=== PATIENT | female | born 1975 | race Caucasian/White ===

== ENCOUNTER 2020-09-15 18:51 | Emergency (ER) | payer OTHER ==
[~2020-09-15] VITALS: Ht 170.2 cm; Wt 70.8 kg
[~2020-09-15 18:51] MED LIST: ETOMIDATE 20 MG/10 ML ONE; OMNIPAQUE 350 MG/ML, 100ML BOTTLE ONE; PROPOFOL 10 MG/ML, 100ML IV ONE
[2020-09-15] MEDS ORDERED: SODIUM CHLORIDE 0.9% 1,000ML IVBOLUS ONE (19:00)
--- NOTE | 2020-09-15 19:05 | NUR ---
brought in by zeny from home. patient was sick for 2 days, found by family in her room unresponsive. EMS arrival patient A & O x 2 , c/o neck / head and back pain. 100 mcg fentanyl given. diaphoretic
--- NOTE | 2020-09-15 19:10 | NUR ---
patient diaphoretic, vomited x 2 moderate in amount, seizure like activity noticed. MD aware. emergent intubation ordered.
--- NOTE | 2020-09-15 19:17 | NUR ---
sedation and paralytic given. intubation started.
[2020-09-15] MEDS: PROPOFOL 100 ML IV PRN ×2 (19:27→19:45)
[2020-09-15] MEDS ORDERED: ETOMIDATE 20 MG/10 ML IVPush ONE (19:30)
[2020-09-15] MEDS ORDERED: PLEASE ENTER HEIGHT AND WEIGHT MC SCH (19:30)
[2020-09-15] MEDS ORDERED: ROCURONIUM 10 MG/ML,10ML IVPush ONE (19:30)
--- NOTE | 2020-09-15 19:30 | NUR ---
patient to CT scan.
--- NOTE | 2020-09-15 19:40 | NUR ---
back from CT scan. awaiting result. re-hooked to monitor.
[2020-09-15 20:29] LABS: MEAN CORPUSCULAR HEMOGLOBIN 29.7 pg (27.0-34.8); MEAN CORPUSCULAR HGB CONC 33.2 g/dL (32.4-35.8); MEAN PLATELET VOLUME 7.9 fL (7.4-10.4); PLATELET COUNT 320 x10^3/uL (130-400); RED BLOOD COUNT 4.93 x10^6/uL (3.82-5.3); RED CELL DISTRIBUTION WIDTH 13.4 % (9.6-15.2)
--- NOTE | 2020-09-15 20:29 | NUR ---
CALL TO [facility], THEY WILL RETURN CALL FOR DOCTOR TO DOCTOR TRANSFER REPORT.
[2020-09-15 20:30] LABS: MD YES
[2020-09-15] MEDS ORDERED: LEVETIRACETAM 1,000 MG in SODIUM CHLORIDE 0.9% 100 ML IV ONE (20:30)
[2020-09-15] MEDS ORDERED: SODIUM CHLORIDE 3% 250 ML IV ONE (20:30)
--- NOTE | 2020-09-15 20:33 | NUR ---
patient kari down to 32 beats / min. MD notified. pulse less Chest compression started.
--- NOTE | 2020-09-15 20:34 | NUR ---
1 amp of epi given and another round of CPR ~ 1 min, patient regained pulse at a rate of 120 / min. Blood pressure high.
--- NOTE | 2020-09-15 20:36 | NUR ---
jeremiah malcolm called over head @ 2034
[2020-09-15 20:39] LABS: ALANINE AMINOTRANSFERASE 52 U/L (12-78); ALBUMIN 3.8 g/dL (3.4-5.0); ANION GAP 15 mmol/L (5-15); CALCIUM 8.6 mg/dL (8.5-10.1); CHLORIDE 104 mmol/L (98-107); CREATININE 1.24 mg/dL (0.55-1.02); SALICYLATE LEVEL 7.7 mg/dL (2.8-20.0)
[2020-09-15 20:40] LABS: INTERNATIONAL NORMALIZED RATIO 1.11 (0.93-1.1); PROTHROMBIN TIME 11.8 Seconds (9.6-11.5)
[2020-09-15 20:43] LABS: ALKALINE PHOSPHATASE 89 U/L (45-117); TOTAL PROTEIN 7.5 g/dL (6.4-8.2)
--- NOTE | 2020-09-15 20:45 | NUR ---
PER DR. FERNANDEZ [facility] TRANSFER REQUEST.
[2020-09-15 20:50] LABS: TROPONIN I 0.275 ng/mL (0.000-0.045)
[2020-09-15 20:52] LABS: BAND#(MANUAL) 2.73 x10^3/uL; BANDS%(MANUAL) 8 % (0-7); LYMPH#(MANUAL) 3.41 x10^3/uL (1-3.4); LYMPHS% (MANUAL) 10 % (22-44); MONOS#(MANUAL) 2.05 x10^3/uL (0.3-2.7); MONOS% (MANUAL) 6 % (2-9); SEG#(MANUAL) 25.92 x10^3/uL (1.8-6.8); SEGS% (MANUAL) 76 % (42-75)
[2020-09-15 20:53] LABS: <RBC MORPHOLOGY> NORMAL
[2020-09-15 20:54] LABS: <PLATELET ESTIMATE> ADEQUATE; <PLT MORPHOLOGY> NORMAL PLT MORPH
--- NOTE | 2020-09-15 21:40 | NUR ---
dr. quispe at bedside. placing ventriculostomy
--- NOTE | 2020-09-15 21:55 | NUR ---
AWAITING [facility]ITICAL [facility]ARE [facility] TRANSPORT FOR TRANSFER TO [facility].
--- NOTE | 2020-09-15 21:55 | NUR ---
procedure done. drainage bag connected but clamped at this time per verbal order by Dr. Cardenas.
[2020-09-15] MEDS ORDERED: POTASSIUM CHLORIDE 20 MEQ in SODIUM CHLORIDE 0.9% 250 ML IV ONE (22:00)
[2020-09-15] MEDS ORDERED: EPINEPHRINE SYRINGE 0.1 MG/ML, 10ML ONE (22:00)
--- NOTE | 2020-09-15 22:03 | NUR ---
report to ROX[facility] hand at [facility].
[2020-09-15 22:09] VITALS: BP 123/95
[2020-09-15 22:36] LABS: MICROSCOPIC AUTO
--- NOTE | 2020-09-15 22:41 | NUR ---
[facility] here to transfer patient to [facility].
[2020-09-15 22:52] LABS: AMPHETAMINE SCREEN, URINE Negative (Negative); BARBITURATE SCREEN, URINE Negative (Negative); BENZODIAZEPINE SCREEN, URINE Negative (Negative); CANNABINOID SCREEN, URINE Positive (Negative); COCAINE SCREEN, URINE Negative (Negative); METHADONE SCREEN, URINE Negative (Negative); OPIATE SCREEN, URINE Negative (Negative)
== END 2020-09-15 23:53 | disposition short-term general hospital (02) ==
LOC: ED 20:27
DX: I21.4 Non-ST elevation (NSTEMI) myocardial infarction (principal); D72.823 Leukemoid reaction; E87.6 Hypokalemia; I60.9 Nontraumatic subarachnoid hemorrhage, unspecified; I46.9 Cardiac arrest, cause unspecified; J96.00 Acute respiratory failure, unspecified whether with hypoxia or hypercapnia; R41.82 Altered mental status, unspecified; M54.2 Cervicalgia; R51.9 Headache, unspecified; R53.1 Weakness
CPT/HCPCS: 31500; 70450; 70496; 70498; 71045; 80053; 80299; 80307; 80320; 80329; 81001; 82140; 82962; 83605; 84484; 85025; 85610; 87040; 87070; 87147; 87205; 93005; 96361; 96365; 96366; 96375; 99291; 99292; J1953; J2704; J3480; J7050; Q9967; 94002; G0480